=== PATIENT | female | born 1995 | race Caucasian/White ===

== ENCOUNTER 2017-07-24 17:30 | Emergency (ER) | payer OTHER ==
[2017-07-24 18:50] LABS: ABS Basophils 0 10^3/ul (0-0.2); ABS Eosinophils 0 10^3/ul (0-0.6); ABS Lymphocytes 0.6 10^3/ul (1.0-4.8); ABS Monocytes 0.4 10^3/ul (0-0.8); ABS Neutrophils 5.7 10^3/ul (1.5-7.7); ABS Nucleated RBC 0 10^3/ul; Eosinophil % 0.4 % (0-6); Hematocrit 41 % (35-47); Hemoglobin 14.1 g/dl (12.0-16.0); Lymphocyte % 8.2 % (25-47); Mean Corpuscular HGB Conc 34 g/dl (31-36); Mean Corpuscular Hemoglobin 30 pg (27-31); Mean Corpuscular Volume 87 fL (80-97); Mean Platelet Volume 7.4 um3 (7.4-10.4); Nucleated Red Blood Cells % 0; Platelet Count 250 10^3/ul (150-450); Red Blood Count 4.75 10^6/ul (4.0-5.4); Red Cell Distribution Width 13 % (10.5-15); White Blood Count 6.8 10^3/ul (3.5-10.8)
[2017-07-24 19:14] LABS: EGFR Non-African American 105.6 (>60)
--- NOTE | 2017-07-24 19:37 | RAD ---
INDICATION: Left lower quadrant pain, history of left ovarian cyst. COMPARISON: There are no prior studies available for comparison. TECHNIQUE: Multiple real-time transabdominal images of the pelvis were obtained. FINDINGS: The uterus is normal in size, shape and echogenicity. The uterus measured 9.0 x 3.8 x 4.5 cm. The endometrial echo measured 0.4 cm in thickness. The right ovary measured 4.1 x 2.4 x 2.3 cm. The left ovary measured 5.7 x 3.9 x 5.4 cm. There is vascular flow within both ovaries. There is a complex cyst present within the left ovary measuring 4.7 x 4.6 x 3.1 cm with a slightly thickened wall and low-level internal echoes. No free intraperitoneal fluid is seen. IMPRESSION: 4.7 CM SLIGHTLY COMPLEX LEFT OVARIAN CYST. RECOMMEND A FOLLOW-UP PELVIC ULTRASOUND IN 1-2 MONTHS TIME TO DEMONSTRATE RESOLUTION.
[2017-07-24 21:00] LABS: Urine Appearance Clear; Urine Blood Negative (Negative); Urine Color Yellow; Urine Ketones Negative (Negative); Urine Protein Negative (Negative); Urine Specific Gravity 1.008 (1.010-1.030); Urine Urobilinogen Negative (Negative)
[2017-07-24 21:25] VITALS: BP 115/90
--- NOTE | 2017-07-24 23:51 | ED ---
Charles Davis Tecjoon, scribed for Adilia Espinoza MD on 07/24/17 at 1900 . Abdominal Pain/Female - HPI Summary HPI Summary: This patient is a 21 year old female presenting to [facility] accompanied by mother with a chief complaint of abd pain for approx. 2 days. Patient was dx with a left ovarian cyst approx. 1 month ago and she states that the pain is exactly the same. US report from 06/19/2017 which pt shows me on a pt portal in her computer states, 5.7 x 5.3 cm left ovarian cyst, compatible with left hemorrhagic cyst. Patient states the pain has started again 2 days ago and worsened today. Patient went to [facility] 5 days ago, received a referral for an outside OBGYN, but could not get a hold of the [facility] [facility] office for an appointment. The pain is rated 6/10 in severity. Symptoms aggravated by nothing. Symptoms alleviated by nothing. 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 Patient denies vomiting, fever, urinary symptoms. States her menses are due in the next day or two. Patient has an IUD. - History of Current Complaint Chief Complaint: EDAbdPain Stated Complaint: CYST Time Seen by Provider: 07/24/17 18:28 Hx Obtained From: Patient, Family/Cork Insulator - mother Hx Last Menstrual Period: 1 month ago ?: No - has an IUD Onset/Duration: Lasting Days - 2, Still Present, Worse Since - today Timing: Constant Severity Initially: Moderate Severity Currently: Moderate Pain Intensity: 6 Pain Scale Used: 0-10 Numeric Location: Discrete At: LLQ Radiates: No Character: Sharp Aggravating Factor(s): Nothing Alleviating Factor(s): Nothing Associated Signs and Symptoms: Positive: Negative - vomiting, fever, urinary symptoms, vag bleeding, vag discharge Simlar Episode/Dx as:: ovarian cyst - Risk Factors Ectopic Risk Factor: IUD Use Allergies/Adverse Reactions: Allergies Allergy/AdvReac Type Severity Reaction Status Date / Time No Known Allergies Allergy Verified 07/24/17 17:40 Home Medications: Home Medications Albuterol HFA INHALER* [Ventolin HFA Inhaler*] 1 - 2 puff INH Q4H PRN 07/24/17 [ History Confirmed 07/24/17] Levonorgestrel (IUD) (NF) [Mirena (NF)] 20 mcg IU DAILY 07/24/17 [History Confirmed 07/24/17] LoraTADine TAB(NF) [Claritin 10 MG TAB(NF)] 10 mg PO DAILY 07/24/17 [History Confirmed 07/24/17] Minocycline (NF) 100 mg PO BID 07/24/17 [History Confirmed 07/24/17] Naproxen TAB* [Naprosyn 375 mg TAB*] 375 mg PO BID PRN 07/24/17 [History Confirmed 07/24/17] PMH/Surg Hx/FS Hx/Imm Hx Previously Healthy: Yes Respiratory History: Reports: Hx Seasonal Allergies Opthamlomology History: Denies: Hx Legally Blind EENT History: Denies: Hx Deafness - Surgical History Surgery Procedure, Year, and Place: none Infectious Disease History: No Infectious Disease History: Denies: Traveled Outside the [place] in Last 30 Days - Family History Known Family History: Positive: Cardiac Disease - Social History Occupation: Student Alcohol Use: None Hx Substance Use: No Substance Use Type: Reports: None Hx Tobacco Use: No Smoking Status (MU): Never Smoked Tobacco Review of Systems Negative: Fever Cardiovascular: Negative Respiratory: Negative Positive: Abdominal Pain. Negative: Vomiting Genitourinary: Negative Positive: see HPI Skin: Negative Neurological: Negative Psychological: Normal All Other Systems Reviewed And Are Negative: Yes Physical Exam - Summary Physical Exam Summary: Appearance: well-appearing, moderate pain distress, Well-nourished Skin: Warm, color reflects adequate perfusion Head: Normal Head/Face inspection Eyes: Conjunctiva clear ENT: Normal inspection Neck: Supple, no nodes, no JVD. Respiratory: Lungs clear, Normal breath sounds, no respiratory distress Cardio: RRR, No murmur, pulses normal, brisk capillary refill Abdomen: Minimal tenderness LLQ, no masses, nondistended Bowel sounds: present Musculoskeletal: Strength Intact/ ROM intact. No calf tenderness. No edema. Psychological: Normal Neuro: Alert, muscle tone normal, no focal deficit Triage Information Reviewed: Yes Vital Signs On Initial Exam: Initial Vitals Temp Pulse Resp BP Pulse Ox 98.1 F 84 15 134/80 100 07/24/17 17:37 07/24/17 17:37 07/24/17 17:37 07/24/17 17:37 07/24/17 17:37 Vital Signs Reviewed: Yes Diagnostics - Vital Signs Vital Signs Temp Pulse Resp BP Pulse Ox 07/24/17 17:37 98.1 F 84 15 134/80 100 - Laboratory Lab Results: Lab Results 07/24/17 Range/Units 18:39 WBC 6.8 (3.5-10.8) 10^3/ul RBC 4.75 (4.0-5.4) 10^6/ul Hgb 14.1 (12.0-16.0) g/dl Hct 41 (35-47) % MCV 87 (80-97) fL MCH 30 (27-31) pg MCHC 34 (31-36) g/dl RDW 13 (10.5-15) % Plt Count 250 (150-450) 10^3/ul MPV 7.4 (7.4-10.4) um3 Neut % (Auto) 84.3 H (38-83) % Lymph % (Auto) 8.2 L (25-47) % Morrill % (Auto) 6.5 (0-7) % Eos % (Auto) 0.4 (0-6) % Baso % (Auto) 0.6 (0-2) % Absolute Neuts (auto) 5.7 (1.5-7.7) 10^3/ul Absolute Lymphs (auto) 0.6 L (1.0-4.8) 10^3/ul Absolute Monos (auto) 0.4 (0-0.8) 10^3/ul Absolute Eos (auto) 0 (0-0.6) 10^3/ul Absolute Basos (auto) 0 (0-0.2) 10^3/ul Absolute Nucleated RBC 0 10^3/ul Nucleated RBC % 0 Result Diagrams: 07/24/17 18:39 07/24/17 18:39 Lab Statement: Any lab studies that have been ordered have been reviewed, and results considered in the medical decision making process. - Additional Comments Diagnostic Additional Comments: US Pelvic reveals, per radiologist, IMPRESSION: 4.7 CM SLIGHTLY COMPLEX LEFT OVARIAN CYST. RECOMMEND A FOLLOW-UP PELVIC ULTRASOUND IN 1-2 MONTHS TIME TO DEMONSTRATE RESOLUTION. ED physician has reviewed this radiology report. Re-Evaluation - Re-Evaluation First Eval Re-Evaluation Time: 21:00 Change: Improved Comment: Pt is comfortable. No vag bleeding or vomiting. Discussed US report with pt and mother, and no need for emergent [employer]IAN consult at this time. Will DC with [employer] TECHNICIAN referral. Abdominal Pain Fem Course/Dx - Course Course Of Treatment: This patient is a 21 year old female presenting to [facility] accompanied by mother with a chief complaint of abd pain x 2 days. Patient was dx with a left ovarian cyst approx. 1 month ago and she states that pain is exactly the same. US report from 06/19/2017 states, 5.7 x 5.3 cm left ovarian cyst, compatible with left hemorrhagic cyst. Patient has an IUD. Pt is due for her menses. US Pelvic reveals, per radiologist, IMPRESSION: 4.7 CM SLIGHTLY COMPLEX LEFT OVARIAN CYST. RECOMMEND A FOLLOW-UP PELVIC ULTRASOUND IN 1-2 MONTHS TIME TO DEMONSTRATE RESOLUTION. ED physician has reviewed this radiology report. Bloodwork Obtained. Urinalysis Obtained. Patient will be discharged with a dx of ovarian cyst. Patient is advised to follow up with [employer]IAN in 3 days. The patient is agreeable with this plan. - Diagnoses Differential Diagnosis: Positive: Ectopic , Ovarian Cyst, Pelvic Inflammatory Disease, Other - ovarian torsion, hemorrhagic ovarian cyst Provider Diagnoses: Ovarian cyst Discharge - Sign-Out/Discharge Documenting (check all that apply): Discharge/Admit/Transfer - Discharge Plan Condition: Stable Disposition: HOME Patient Education Materials: Ovarian Cyst (ED) Referrals: [facility] - Phil DE LA PAZ [Medical Doctor] - If Needed Tamara Dove MD [Medical Doctor] - As Soon As Possible Additional Instructions: We have diagnosed a left ovarian cyst as they did prior. It does not need emergency intervention at this time. We have given you a copy of your labs. We will notify you if you need antibiotics based on a culture that we have sent. We have given you a copy of your labs. Return to the ER if you have any new or worsening symptoms. - Billing Disposition and Condition Condition: STABLE Disposition: HOME The documentation as recorded by the Charles pierson Tecjoon accurately reflects the service I personally performed and the decisions made by , Adilia Espinoza MD.
== END 2017-07-24 21:26 | disposition home or self-care (01) ==
LOC: ED 17:30
DX: N83.202 Unspecified ovarian cyst, left side (principal)
CPT/HCPCS: 36415; 76856; 80053; 81003; 81015; 82150; 83605; 83690; 84702; 85025; 86140; 87086; 99283